=== PATIENT | male | born 1965 | race Caucasian/White ===

== ENCOUNTER → 2017-02-08 | Outpatient (CLI) | payer OTHER | LOC: RAD 09:06 | DX: M54.2 Cervicalgia (principal) | CPT/HCPCS: 72040 ==

== ENCOUNTER → 2020-11-17 | Outpatient (CLI) | payer OTHER ==
[~2020-11-17] MED LIST: ALBUTEROL2.5 MG/3 M INH; BACLOFEN20 MG PO; COZAAR50 MG PO; DICYCLOMINE HCL20 MG PO; ECOTRIN81 MG PO; FELDENE10 MG PO; FLOMAX0.4 MG PO; FLOVENT DISKUS50 MCG INH; GLUCOPHAGE500 MG PO; HYDROCHLOROTHIA25 MG PO; IBU800 MG PO; LIPITOR TAB 2020 MG PO; PERCOCET 5-3251 EACH PO; SYMBICORT 16010.2 GM INH; TOPROL XL25 MG PO
[2020-11-17 09:22] LABS: BUN/CREATININE RATIO 9 (0-10)
== END ==
LOC: OPSV2 07:57
PROVIDERS: Surgery
DX: Z01.818 Encounter for other preprocedural examination (principal); E11.9 Type 2 diabetes mellitus without complications
CPT/HCPCS: 36415; 80048; 93005

== ENCOUNTER → 2020-11-18 | Day surgery (SDC) | payer OTHER | END | disposition home or self-care (01) | LOC: OR 07:14 | PROVIDERS: Surgery | PROC: 0YU50JZ Supplement Right Inguinal Region with Synthetic Substitute, Open Approach (ICD-10-PCS; principal; 2020-11-18 09:15) | DX: K40.90 Unilateral inguinal hernia, without obstruction or gangrene, not specified as recurrent (principal); K76.0 Fatty (change of) liver, not elsewhere classified; K21.9 Gastro-esophageal reflux disease without esophagitis; M19.90 Unspecified osteoarthritis, unspecified site; F41.9 Anxiety disorder, unspecified; F32.9 Major depressive disorder, single episode, unspecified; F41.0 Panic disorder [episodic paroxysmal anxiety]; J44.9 Chronic obstructive pulmonary disease, unspecified; E11.9 Type 2 diabetes mellitus without complications; E78.5 Hyperlipidemia, unspecified; I11.9 Hypertensive heart disease without heart failure; K58.0 Irritable bowel syndrome with diarrhea; M54.5 Low back pain; G47.33 Obstructive sleep apnea (adult) (pediatric); Z79.82 Long term (current) use of aspirin; Z79.1 Long term (current) use of non-steroidal anti-inflammatories (NSAID); Z79.84 Long term (current) use of oral hypoglycemic drugs; Z79.899 Other long term (current) drug therapy; Z88.5 Allergy status to narcotic agent; Z91.010 Allergy to peanuts; Z99.81 Dependence on supplemental oxygen; Z20.822 Contact with and (suspected) exposure to COVID-19; Z95.5 Presence of coronary angioplasty implant and graft; Z88.8 Allergy status to other drugs, medicaments and biological substances | CPT/HCPCS: 82962; C1781; J0690; J2001; J2250; J2405; J2704; J2710; J3010; J7030; J7120 ==